=== PATIENT | male | born 1990 | race Two or more races ===

== ENCOUNTER 2022-08-30 | Emergency (ER) | payer SELFPAY ==
[~2022-08-30] MED LIST: Tranexamic Acid 1,000 MG/10 ML Vial ONE
[2022-08-30] MEDS ORDERED: Naloxone 0.4 MG/ML SDV ONE (00:05)
[2022-08-30] MEDS ORDERED: Naloxone 0.4 MG/ML SDV IVPUSH ONE (00:06)
[2022-08-30] MEDS ORDERED: fentaNYL 100 MCG/2 ML SDV ONE ×2 (00:10→00:47)
[2022-08-30] MEDS ORDERED: Midazolam 5 MG/ML SDV ONE (00:10)
[2022-08-30] MEDS ORDERED: Sodium Chloride 0.9% 1,000 ML IV ONE (00:13)
[2022-08-30] MEDS ORDERED: Etomidate 2 MG/ML 20 ML SDV IVPUSH ONE (00:16)
[2022-08-30] MEDS ORDERED: Rocuronium 50 MG/5 ML Vial IV ONE ×2 (00:17→00:40)
[2022-08-30] MEDS ORDERED: Midazolam 5 MG/ML SDV IVPUSH ONE (00:21)
[2022-08-30] MEDS ORDERED: Tranexamic Acid 1,000 MG/10 ML Vial IV ONE (00:22)
[2022-08-30] MEDS ORDERED: propofoL 100 ML IV SCH (00:22)
[2022-08-30] MEDS ORDERED: fentaNYL 100 MCG/2 ML SDV IVPUSH ONE ×3 (00:29→01:45)
[2022-08-30] MEDS ORDERED: Sodium Chloride 0.9% 2.5 ML Syringe FLUSH PRN (00:34)
[2022-08-30] MEDS ORDERED: Sodium Chloride 0.9% 10 ML Syringe FLUSH PRN (00:34)
[2022-08-30 00:43] LABS: BASOPHILS PERCENT AUTO 0.2 % (0.0-1.5); EOSINOPHILS ABSOLUTE AUTO 0.2 K/uL (0.0-0.7); EOSINOPHILS PERCENT AUTO 2.4 % (0.0-7.0); HEMATOCRIT 39.4 % (38.0-50.0); HEMOGLOBIN 14.2 g/dL (13.0-17.0); LYMPHOCYTES ABSOLUTE AUTO 3.8 K/uL (0.6-2.4); MEAN CORPUSCULAR HEMOGLOBIN 31.8 pg (27.0-32.0); MEAN CORPUSCULAR VOLUME 88.3 fL (80.0-98.0); MONOCYTES ABSOLUTE AUTO 0.4 K/uL (0.0-0.8); MONOCYTES PERCENT AUTO 5.1 % (0.0-15.0); NEUTROPHILS ABSOLUTE AUTO 3.7 K/uL (1.4-5.7); NEUTROPHILS PERCENT AUTO 45.3 % (48.0-80.0); NRBC ABSOLUTE 0 K/uL; PLATELET COUNT,PLT 439 K/uL (150-400); RED BLOOD CELL COUNT 4.46 M/uL (4.50-5.90); WHITE BLOOD CELL COUNT,WBC 8.17 K/uL (4.0-11.0)
[2022-08-30] MEDS ORDERED: Propofol 200 MG/20 ML SDV ONE (00:47)
[2022-08-30 00:52] LABS: A/G RATIO 0.9 (0.9-1.6); ACETAMINOPHEN <2.0 ug/mL; ALANINE AMINOTRANSFERASE,ALT 71 IU/L (14-63); ALBUMIN 3.8 g/dL (3.4-5.0); ALKALINE PHOSPHATASE 113 U/L (46-116); ASPARTATE AMNIOTRANSFERASE,AST 37 IU/L (15-37); BILIRUBIN TOTAL 0.2 mg/dL (0.2-1.0); BLOOD UREA NITROGEN,BUN 14 mg/dL (7.0-18.0); CALCIUM 8.2 mg/dL (8.5-10.1); CARBON DIOXIDE,CO2 20.9 mmol/L (21.0-32.0); CHLORIDE,CL 107 mmol/L (98-107); CREATININE 1.1 mg/dL (0.8-1.3); ETHANOL BLOOD MEDICAL 195 mg/dL; GLUCOSE RANDOM 135 mg/dL (74-106); LIPASE 93 U/L (73-393); POTASSIUM,K 3.5 mmol/L (3.5-5.1); PROTEIN TOTAL,TP 7.9 g/dL (6.4-8.2); SALICYLATE 1.8 mg/dL (0.0-20.0); SODIUM,NA 144 mmol/L (136-148)
[2022-08-30 01:27] LABS: ESTIMATED GFR 91 mL/min (>60)
[2022-08-30 01:28] LABS: INR 0.96 (0.86-1.11); PTT,PARTIAL THROMBOPLSTIN TIME 29.1 SEC (23.9-30.7)
[2022-08-30 01:53] LABS: AMPHETAMINES SCREEN, URINE NEGATIVE (NEGATIVE); BARBITURATE SCREEN,URINE NEGATIVE (NEGATIVE); BENZODIAZEPINES SCREEN,URINE NEGATIVE (NEGATIVE); METHADONE SCREEN, URINE NEGATIVE (NEGATIVE); METHAMPHETAMINE SCREEN, URINE NEGATIVE (NEGATIVE); OXYCODONE SCREEN,URINE NEGATIVE (NEGATIVE); PCP SCREEN,URINE NEGATIVE (NEGATIVE); THC SCREEN,URINE 20 NG/ML NEGATIVE (NEGATIVE)
[2022-08-30] MEDS ORDERED: propofoL 100 ML ONE (02:24)
== END 2022-08-30 02:50 ==
LOC: EDBD → MW.ED
DX: S11.91XA Laceration without foreign body of unspecified part of neck, initial encounter (principal); X99.1XXA Assault by knife, initial encounter
CPT/HCPCS: 31500; 36415; 36430; 70460; 70498; 71045; 71275; 80053; 80143; 80179; 80305; 80307; 83690; 85025; 85610; 85730; 86850; 86900; 86901; 86920; 99285; G0390; J2250; J2704; J3010; P9016; 99291; 99292; J3490

== ENCOUNTER 2022-10-12 00:34 | Emergency (ER) | payer SELFPAY ==
[2022-10-12] MEDS: fentaNYL 100 MCG/2 ML SDV IVPUSH PRN ×2 (00:40→05:00)
[2022-10-12] MEDS ORDERED: ceFAZolin 2 GM in Sodium Chloride 0.9% 50 ML IV ONE (00:49)
[2022-10-12] MEDS ORDERED: propofoL 100 ML IV SCH ×2 (01:00→07:00)
[2022-10-12] MEDS ORDERED: Ketamine 500 mg/10 ML MDV IV ONE (01:09)
[2022-10-12 01:16] LABS: BASOPHILS PERCENT AUTO 0.2 % (0.0-1.5); EOSINOPHILS ABSOLUTE AUTO 0.2 K/uL (0.0-0.7); EOSINOPHILS PERCENT AUTO 1.6 % (0.0-7.0); HEMATOCRIT 40.7 % (38.0-50.0); HEMOGLOBIN 14.4 g/dL (13.0-17.0); LYMPHOCYTES ABSOLUTE AUTO 5.7 K/uL (0.6-2.4); LYMPHOCYTES PERCENT AUTO 43.6 % (16.0-40.0); MEAN CORPUSCULAR HEMOGLOBIN 31.2 pg (27.0-32.0); MEAN CORPUSCULAR HGB CONC 35.4 g/dL (31.0-37.0); MEAN CORPUSCULAR VOLUME 88.3 fL (80.0-98.0); MONOCYTES PERCENT AUTO 7.7 % (0.0-15.0); NEUTROPHILS ABSOLUTE AUTO 6.2 K/uL (1.4-5.7); NEUTROPHILS PERCENT AUTO 46.9 % (48.0-80.0); NRBC ABSOLUTE 0 K/uL; PLATELET COUNT,PLT 525 K/uL (150-400); RED BLOOD CELL COUNT 4.61 M/uL (4.50-5.90); WHITE BLOOD CELL COUNT,WBC 13.14 K/uL (4.0-11.0)
[2022-10-12 01:17] LABS: INR 0.94 (0.86-1.11); PTT,PARTIAL THROMBOPLSTIN TIME 29.2 SEC (23.9-30.7)
[2022-10-12 01:20] LABS: APPEARANCE,URINE CLEAR; BILIRUBIN,URINE NEGATIVE (NEGATIVE); COLOR,URINE YELLOW; GLUCOSE,URINE NEGATIVE (NEGATIVE); KETONES,URINE NEGATIVE (NEGATIVE); LEUKOCYTE ESTERASE,URINE NEGATIVE (NEGATIVE); NITRITE,URINE NEGATIVE (NEGATIVE); OCCULT BLOOD,URINE TRACE-INTACT (NEGATIVE); PH,URINE 5.5 (5.0-8.0); PROTEIN,URINE NEGATIVE (NEGATIVE); UROBILINOGEN,URINE 0.2 EU/dL (<2.0)
[2022-10-12 01:25] LABS: A/G RATIO 0.8 (0.9-1.6); ALBUMIN 3.7 g/dL (3.4-5.0); BILIRUBIN TOTAL 0.2 mg/dL (0.2-1.0); CALCIUM 8.1 mg/dL (8.5-10.1); CARBON DIOXIDE,CO2 19.1 mmol/L (21.0-32.0); CREATININE 1.2 mg/dL (0.8-1.3); POTASSIUM,K 3.6 mmol/L (3.5-5.1); PROTEIN TOTAL,TP 8.5 g/dL (6.4-8.2)
[2022-10-12] MEDS: Propofol 200 MG/20 ML SDV IVPUSH ONE (01:26)
[2022-10-12 01:28] LABS: AMPHETAMINES SCREEN, URINE NEGATIVE (CUTOFF=500); BARBITURATE SCREEN,URINE NEGATIVE (CUTOFF=200); BENZODIAZEPINES SCREEN,URINE NEGATIVE (CUTOFF=150); BUPRENORPHINE SCREEN,URINE NEGATIVE (CUTOFF=10); METHADONE SCREEN, URINE NEGATIVE (CUTOFF=200); METHAMPHETAMINES SCREEN, URINE NEGATIVE (CUTOFF=500); OXYCODONE SCREEN,URINE NEGATIVE (CUT0FF=100); PCP SCREEN,URINE NEGATIVE (CUTOFF=25); PROPOXYPHENE SCREEN,URINE NEGATIVE (CUTOFF=300); THC SCREEN,URINE 20 NG/ML NEGATIVE (CUTOFF=50)
[2022-10-12 01:35] LABS: BASE EXCESS ARTERIAL -5.9 (-2.0-3.0); BICARBONATE,ARTERIAL 22 mEq/L (22-26); PCO2 ARTERIAL 49 mmHG (35-45); PO2 ARTERIAL 89 mmHG (80-105)
[2022-10-12 01:36] LABS: AMORPHOUS SEDIMENT,URINE LIGHT (NEGATIVE); BACTERIA,URINE FEW (NEGATIVE); EPITHELIAL CELLS,URINE FEW (NONE-FEW); RBC,URINE 0-2 (0-2/HPF); WBC,URINE 0-1 (0-5/HPF)
[2022-10-12 01:50] LABS: LACTIC ACID 3.7 mmol/L (0.4-2.0)
[2022-10-12] MEDS ORDERED: Iopamidol 755 MG/ML 500 ML Multipack Bottle IVPUSH STA ×2 (02:20)
[2022-10-12] MEDS ORDERED: Sodium Bicarbonate 8.4% 50 MEQ/50 ML Syringe IVPUSH ONE (02:36)
[2022-10-12] MEDS ORDERED: Calcium Chloride 10% 1 GM/10 ML Syringe IVPUSH ONE (02:36)
[2022-10-12] MEDS ORDERED: Ketamine 500 mg/10 ML MDV ONE (02:47)
[2022-10-12] MEDS ORDERED: EPINEPHrine 1 MG/1 ML Amp IVPUSH STA ×2 (02:50→06:12)
[2022-10-12] MEDS ORDERED: fentaNYL/Normal Saline 250 ML ONE (02:58)
[2022-10-12] MEDS ORDERED: EPINEPHrine 1 MG/1 ML Amp IVPUSH ONE (06:06)
[2022-10-12] MEDS ORDERED: Etomidate 2 MG/ML 20 ML SDV IVPUSH STA (06:28)
[2022-10-12] MEDS ORDERED: Rocuronium 50 MG/5 ML Vial IVPUSH STA (06:33)
[2022-10-13] MEDS ORDERED: HYDROmorphone 1 MG/ML Syringe IVPUSH ONE (02:30)
[2022-10-13] MEDS ORDERED: fentaNYL/Normal Saline 2,500 MCG in Premix Bag 1 BAG IV PRN (06:13)
[2022-10-13] MEDS: Propofol 200 MG/20 ML SDV IVPUSH ONE (22:25)
== END 2022-10-12 03:45 ==
LOC: MW.ED 00:34
DX: S10.93XA Contusion of unspecified part of neck, initial encounter (principal); W45.8XXA Other foreign body or object entering through skin, initial encounter
CPT/HCPCS: 31500; 32551; 36415; 36430; 36556; 36600; 36620; 36680; 70450; 70498; 71045; 71260; 72125; 74177; 80053; 80305; 80307; 81001; 82803; 83605; 84484; 85025; 85610; 85730; 86850; 86900; 86901; 86920; 96365; 96366; 96367; 96375; 96376; 99291; 99292; J0171; J0690; J1170; J3010; J3490; P9016; Q9967; J2704

== ENCOUNTER 2022-10-23 19:19 | Emergency (ER) | payer SELFPAY | END 2022-10-23 19:59 | disposition home or self-care (01) | LOC: MW.ED 19:19 | DX: S21.111D Laceration without foreign body of right front wall of thorax without penetration into thoracic cavity, subsequent encounter (principal); Z48.02 Encounter for removal of sutures | CPT/HCPCS: 99282 ==

== ENCOUNTER 2022-10-30 17:42 | Emergency (ER) | payer SELFPAY | END 2022-10-30 19:15 | disposition left against medical advice (07) | LOC: MW.ED 17:42 | DX: Z53.21 Procedure and treatment not carried out due to patient leaving prior to being seen by health care provider (principal) ==

== ENCOUNTER 2022-11-04 13:45 | Emergency (ER) | payer SELFPAY | END 2022-11-04 14:12 | disposition left against medical advice (07) | LOC: MW.ED 13:45 | DX: Z53.21 Procedure and treatment not carried out due to patient leaving prior to being seen by health care provider (principal) ==

== ENCOUNTER 2022-11-06 07:24 | Emergency (ER) | payer SELFPAY ==
[2022-11-06] MEDS ORDERED: Sodium Chloride 0.9% 2.5 ML Syringe FLUSH PRN (07:25)
[2022-11-06] MEDS ORDERED: Sodium Chloride 0.9% 1,000 ML IV ONE (07:25)
[2022-11-06] MEDS ORDERED: Sodium Chloride 0.9% 10 ML Syringe FLUSH PRN (07:25)
[2022-11-06] MEDS ORDERED: Ondansetron 4 MG/2 ML SDV IVPUSH ONE (07:46)
[2022-11-06 08:04] LABS: BASE EXCESS VENOUS -5.2 (-2.0-3.0); BASOPHILS PERCENT AUTO 0.2 % (0.0-1.5); EOSINOPHILS PERCENT AUTO 0.5 % (0.0-7.0); HEMOGLOBIN 13.6 g/dL (13.0-17.0); LYMPHOCYTES ABSOLUTE AUTO 2.4 K/uL (0.6-2.4); LYMPHOCYTES PERCENT AUTO 27.5 % (16.0-40.0); MEAN CORPUSCULAR HEMOGLOBIN 30.5 pg (27.0-32.0); MEAN CORPUSCULAR HGB CONC 34.9 g/dL (31.0-37.0); MEAN CORPUSCULAR VOLUME 87.4 fL (80.0-98.0); MONOCYTES ABSOLUTE AUTO 0.6 K/uL (0.0-0.8); MONOCYTES PERCENT AUTO 6.6 % (0.0-15.0); NEUTROPHILS ABSOLUTE AUTO 5.6 K/uL (1.4-5.7); NEUTROPHILS PERCENT AUTO 65.2 % (48.0-80.0); NRBC ABSOLUTE 0 K/uL; PH,VENOUS 7.34 (7.31-7.41); PLATELET COUNT,PLT 526 K/uL (150-400); RED BLOOD CELL COUNT 4.46 M/uL (4.50-5.90); WHITE BLOOD CELL COUNT,WBC 8.63 K/uL (4.0-11.0)
[2022-11-06 08:26] LABS: A/G RATIO 0.8 (0.9-1.6); ACETAMINOPHEN <2.0 ug/mL; ALANINE AMINOTRANSFERASE,ALT 84 IU/L (14-63); ALBUMIN 3.8 g/dL (3.4-5.0); ALKALINE PHOSPHATASE 98 U/L (46-116); ASPARTATE AMNIOTRANSFERASE,AST 29 IU/L (15-37); BILIRUBIN TOTAL 0.2 mg/dL (0.2-1.0); BLOOD UREA NITROGEN,BUN 13 mg/dL (7.0-18.0); CALCIUM 8.2 mg/dL (8.5-10.1); CARBON DIOXIDE,CO2 20.6 mmol/L (21.0-32.0); CHLORIDE,CL 105 mmol/L (98-107); CREATINE KINASE,CK 131 U/L (26-308); CREATININE 1.1 mg/dL (0.8-1.3); ETHANOL BLOOD MEDICAL 154 mg/dL; GLUCOSE RANDOM 106 mg/dL (74-106); LIPASE 56 U/L (73-393); MAGNESIUM 2.1 mg/dL (1.8-2.4); POTASSIUM,K 3.7 mmol/L (3.5-5.1); PROTEIN TOTAL,TP 8.4 g/dL (6.4-8.2); SALICYLATE 0.3 mg/dL (0.0-20.0); SODIUM,NA 142 mmol/L (136-148)
[2022-11-06 08:30] LABS: ESTIMATED GFR 91 mL/min (>60); INR 1.04 (0.86-1.11); PTT,PARTIAL THROMBOPLSTIN TIME 24.8 SEC (23.9-30.7)
[2022-11-06] MEDS ORDERED: fentaNYL 50 MCG/ML SDV IVPUSH ONE (08:39)
[2022-11-06] MEDS ORDERED: Iopamidol 755 MG/ML 500 ML Multipack Bottle IVPUSH ONE (09:19)
[2022-11-06] MEDS ORDERED: Bacitracin Oint 1 GM U/D Packet TOP ONE (10:04)
== END 2022-11-06 11:40 ==
LOC: MW.ED 07:24
DX: S20.212A Contusion of left front wall of thorax, initial encounter (principal); F10.929 Alcohol use, unspecified with intoxication, unspecified; X78.1XXA Intentional self-harm by knife, initial encounter
CPT/HCPCS: 36415; 70450; 71045; 71275; 80053; 80143; 80179; 80307; 82140; 82375; 82550; 82803; 83605; 83690; 83735; 83880; 84484; 85025; 85610; 85730; 86850; 86900; 86901; 93005; 96361; 96374; 96375; 99285; J2405; J3010; J3490; J7030; Q9967; 93010; 99291